=== PATIENT | male | born 1960 | race Hispanic/Latino ===

== ENCOUNTER 2018-11-30 05:24 | Inpatient (IN) | payer SELFPAY ==
[2018-11-30] MEDS ORDERED: Morphine 4 MG/ML VIAL ONE (05:42)
[2018-11-30] MEDS ORDERED: Ondansetron PF 4 MG/2 ML Vial ONE ×2 (05:42→10:49)
[2018-11-30 06:03] LABS: Hemoglobin 16.4 g/dL (14.0-18.0); Mean Corpuscular HGB CONC 32.4 g/dL (32.0-36.0); Mean Corpuscular Hemoglobin 28.8 pg (27.0-31.0); Mean Corpuscular Volume 89.1 fL (78.0-98.0); Mean Platelet Volume 8.7 fL (7.4-10.4); Platelet Count 256 thou/uL (130-400); RBC Distribution Width 11.4 % (11.5-14.5); Red Blood Cell (RBC) Count 5.69 mill/uL (4.70-6.10); White Blood Cell (WBC) Count 17.4 thou/uL (4.8-10.8)
[2018-11-30 06:20] LABS: ALT (SGPT) 23 U/L (8-55); AST (SGOT) 12 U/L (5-34); Albumin 4.1 g/dL (3.5-5.0); Alkaline Phosphatase 75 U/L (40-150); Anion Gap 17 mmol/L (10-20); BUN (Urea Nitrogen) 26 mg/dL (8.4-25.7); Bilirubin, Total 2.4 mg/dL (0.2-1.2); Calc. Creatinine Clearance 0 mL/min (70-130); Calcium 9.5 mg/dL (7.8-10.44); Carbon Dioxide 22 mmol/L (22-29); Chloride 92 mmol/L (98-107); Estimated GFR-MDRD 44; Globulin 3.5 g/dL (2.4-3.5); Glucose 267 mg/dL (70-105); Lipase Less than 4 U/L (8-78); Potassium 3.4 mmol/L (3.5-5.1); Protein, Total 7.6 g/dL (6.0-8.3); Sodium 128 mmol/L (136-145)
[2018-11-30] MEDS ORDERED: MEROPENEM 1 GM/50 ML 1 GM in Premix Bag 1 BAG IVPB SCH (06:30)
[2018-11-30 06:43] LABS: Band 9 % (5-11); Lymphocytes 2 % (21-51); MDiff Complete? YES; Monocytes 2 % (0-10); Neutrophil 83 % (42-75); Platelet Morphology Comment Appears Adequate; RBC Morphology Normal; Reactive Lymphocytes 4 % (0-10)
[2018-11-30] MEDS ORDERED: HYDROmorphone 0.5 MG/0.5 ML SYRINGE ONE (06:53)
[2018-11-30] MEDS ORDERED: Ketorolac Tromethamine 30 MG/ML VIAL ONE ×2 (07:04→10:49)
--- NOTE | 2018-11-30 07:06 | CT ---
CT ABDOMEN AND PELVIS WITH CONTRAST: INDICATIONS: Abdominal pain. COMPARISON: None. FINDINGS: No significant pathology at the imaged lung bases. Diminished attenuation of the liver may relate to hepatic steatosis versus phase of enhancement. There are loops of dilated small bowel, fluid-filled , with prominent inflammation, located about the right lower abdomen, where there is focal hyperdensi ty of bowel lumen, indicating an impacted appendicolith at the appendiceal base. The fluid-filled joby wel structure demonstrates the appearance of an elongated, dilated appendix, with a maximum diameter of approximately 16 to 17 mm. There is suggestion of a developing perforation, as evidenced by an il l-defined extraluminal air collection with surrounding prominent inflammation and ascites and additio nal interspersed air density, interposed between loops of inflamed bowel. The spleen, pancreas, kidn eys, and adrenal glands are grossly unremarkable. No acute osseous pathology. IMPRESSION: Evidence of perforated appendicitis with associated bowel obstruction. Urgent surgical consultation is warranted. Telephone call placed to emergency room physician, Kar Gallardo D.O., at the time of this dictation (0611 hours), 11/30/2018. CODE CR POS: [facility]
[2018-11-30] MEDS ORDERED: Acetaminophen 1,000 MG in Premix Bag 1 BAG IVPB SCH (07:15)
[2018-11-30] MEDS ORDERED: Promethazine HCl 25 MG/ML VIAL IM PRN ×2 (07:43→12:02)
[2018-11-30] MEDS ORDERED: Dextrose 50% Abboject 50 ML SYRINGE SLOW IVP PRN (07:43)
[2018-11-30] MEDS ORDERED: Dextrose 5% in Water 1,000 ML IV PRN (07:43)
[2018-11-30] MEDS ORDERED: Ondansetron PF 4 MG/2 ML Vial IVP PRN (07:43)
[2018-11-30 07:48] LABS: Clarity Hazy (Clear)
[2018-11-30 07:49] LABS: Leukocyte Negative (Negative)
[2018-11-30 07:50] LABS: Nitrite Unable to Interpret (Negative)
[2018-11-30 07:51] LABS: Bilirubin Unable to Interpret (Negative); Glucose, Urine (Dipstick) 250 mg/dL (Negative); Protein, Urine (Dipstick) > or equal to 300 mg/dL (Neg-Trace); Urobilinogen 0.2 mg/dL (0.2-1.0)
[2018-11-30 07:52] LABS: Blood, Urine Small (Negative)
[2018-11-30] MEDS ORDERED: Morphine 4 MG/ML VIAL SLOW IVP PRN (07:54)
[2018-11-30] MEDS ORDERED: Potassium Chloride 40 MEQ in Premix Bag 1 BAG IVPB SCH (08:00)
[2018-11-30 08:11] LABS: RBC/HPF 0-3 HPF (0-3)
[2018-11-30 08:12] LABS: Bacteria/HPF 1+ HPF (None Seen); Squamous Epithelial 0-3 HPF (0-3); WBC/HPF 0-3 HPF (0-3)
[2018-11-30 08:13] LABS: Other Casts/LPF 0-3 FINELY GRAN LPF (0-3 Hyaline)
[2018-11-30] MEDS ORDERED: Bupivacaine/Epinephrine 0.25% 30 ML VIAL ONE (08:13)
[2018-11-30] MEDS ORDERED: Fentanyl 250 MCG/5 ML VIAL ONE (08:18)
[2018-11-30 08:21] LABS: Hemoglobin A1c 6.8 % (4.0-6.0)
--- NOTE | 2018-11-30 08:24 | RAD ---
SINGLE VIEW CHEST: HISTORY: Abdominal pain and vomiting for two days. COMPARISON: None. FINDINGS: Two views of the chest show normal sized cardiomediastinal silhouette. There is no evidence of consol idation, mass, or pleural effusion. The bones are unremarkable. IMPRESSION: No evidence of acute cardiopulmonary disease. POS: [facility]
[2018-11-30 08:36] LABS: Magnesium 1.7 mg/dL (1.6-2.6); Phosphorus 2.4 mg/dL (2.3-4.7)
[2018-11-30] MEDS ORDERED: Iopamidol 370 76% 100 ML VIAL ONE (09:38)
[2018-11-30] MEDS ORDERED: Glycopyrrolate 0.2 MG/ML 5 ML SYRINGE ONE (10:49)
[2018-11-30] MEDS ORDERED: Rocuronium Bromide 10 MG/ML (10ML VIAL) ONE (10:49)
[2018-11-30] MEDS ORDERED: PROPOFOL 200 MG/20 ML VIAL ONE (10:49)
[2018-11-30] MEDS ORDERED: Phenylephrine HCL 10 MG/ML VIAL ONE (10:49)
[2018-11-30] MEDS ORDERED: Lidocaine 1% PF 5 ML VIAL ONE (10:49)
[2018-11-30] MEDS ORDERED: Dexamethasone 20 MG/5 ML VIAL ONE (10:49)
[2018-11-30] MEDS ORDERED: SUGAMMADEX SODIUM 200 MG/2 ML VIAL ONE (11:03)
[2018-11-30] MEDS ORDERED: SUGAMMADEX SODIUM 500 MG/5 ML VIAL ONE (11:03)
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
--- NOTE | 2018-11-30 11:40 | OP ---
DATE OF PROCEDURE: 11/30/2018 PREOPERATIVE DIAGNOSES: Acute appendicitis with rupture and peritonitis. POSTOPERATIVE DIAGNOSES: 1. Acute appendicitis with rupture and peritonitis. 2. Multiple intraperitoneal abscesses. PROCEDURE PERFORMED: 1. Laparoscopic appendectomy. 2. Drainage of multiple peritoneal abscesses. ANESTHESIA: General endotracheal. ESTIMATED BLOOD LOSS: 20 mL. FLUIDS GIVEN: 2500 mL crystalloids. COUNTS: Sponge and instrument counts were verified as correct x2. COMPLICATIONS: None apparent at time of operation. INDICATIONS FOR OPERATION: This is a 58-year-old man presented with a 4-day history of abdominal pain. Clinical radiographic examination was consistent with acute appendicitis with rupture for which the patient was brought to the operating room for appendectomy. Findings are consistent with suppurative retrocecal perforated appendix with multiple peritoneal abscesses. DESCRIPTION OF PROCEDURE: Informed consent was obtained from the patient. He was brought to the operating room and placed in supine position. Following general anesthesia, the abdomen was sterilely prepped and draped in usual fashion after a Ortiz catheter was inserted and placed to bedside drain. Skin below the umbilicus was infiltrated 0.25% Marcaine with epinephrine. A small curvilinear infraumbilical incision was made using 11 scalpel. Umbilical stalk grasped with Catalina and elevated. Veress needle was inserted through incision and placed in the peritoneal cavity through which the abdomen was insufflated with 2 L of CO2 gas. Intra-abdominal pressure was noted at 4 mmHg. Following abdominal insufflation, Veress needle was removed and a 5 mm trocar was introduced using a Visiport under laparoscopy. Laparoscopy confirmed proper placement of the port, no injuries to underlying structures. Additional laparoscopy revealed extensive amount of purulent peritoneal fluid, multiple and interloop abscesses noted. There were extensive fibrinous exudates with small bowel adhesions obscuring the right lower quadrant. At this juncture, 5 mm suprapubic and 10 mm left lower quadrant ports were placed after the overlying skin were infiltrated 0.25% Marcaine with epinephrine. Appropriate incision was made. The patient was placed in the Trendelenburg position, rotated to his left. I introduced an Endo suction catheter, used this to evacuate excess purulent peritoneal fluid. Loculations were broken down as multiple loops of bowel were teased apart evacuating interloop purulent fluid collections. Using the Endo suction catheter, the omentum was bluntly taken down off the right lower quadrant. Small bowel was then run from the ileocecal junction to proximal 2 feet finding no Meckel diverticulum. Suppurative retrocecal appendix with rupture was encountered. I introduced an Endo-Wentworth forceps through the suprapubic port site grasping the appendix, which was elevated. I used LigaSure device to serially divide the mesoappendix. The appendix itself was divided at the appendico-cecal junction between endo-loops. The suppurative appendix delivered of the abdominal cavity using an EndoCatch. The abdominal cavity was copiously irrigated with saline until it was clear. A #19 En drain was introduced into the pelvis with the tip abutting the operative site. The drain was allowed to exit the abdominal cavity through the suprapubic port site. The drain was secured to anterior abdominal wall using 2-0 silk suture. Finding no other pathology laparoscopy was terminated. Fascia of the left lower quadrant port was closed using 0 Vicryl suture and Endoclosure device on the laparoscopy. Abdomen had been desufflated. All ports and instruments were removed and accounted for. Skin incisions were closed using 4-0 Monocryl suture in subcuticular fashion. Dermabond was applied over incisional closure. The patient tolerated the operation without any apparent complication and was returned to recovery room in satisfactory condition. Job ID: [id number]
[2018-11-30] MEDS ORDERED: Ondansetron HCl/PF 4 MG/2 ML Vial IVP PRN (12:02)
[2018-11-30] MEDS ORDERED: Promethazine HCl 25 MG/ML VIAL SLOW IVP PRN (12:02)
[2018-11-30 12:42] LABS: Lactic Acid 2.2 mmol/L (0.5-2.2)
[2018-11-30 14:52] VITALS: BMI 29.2
[2018-11-30] MEDS: Famotidine/PF 20 mg/2ml Vial SLOW IVP SCH (15:26)
[2018-11-30] MEDS: Sodium Chloride 0.9% 1,000 ML IV SCH ×3 (16:02→23:50)
[2018-11-30] MEDS: Acetaminophen 1,000 MG in Premix Bag 1 BAG IVPB SCH ×3 (16:03→23:51)
[2018-11-30] MEDS: Piperacillin/Tazobactam 3.375 GM in Sodium Chloride 0.9% 100 ML IVPB SCH ×3 (16:03→23:51)
[2018-11-30] MEDS: HumaLOG 300 UNITS/3 ML VIAL SC PRN ×2 (16:44→20:50)
[2018-11-30 16:49] LABS: Hemoglobin 13.4 g/dL (14.0-18.0); Mean Corpuscular HGB CONC 34.4 g/dL (32.0-36.0); Mean Corpuscular Hemoglobin 31.5 pg (27.0-31.0); Mean Corpuscular Volume 91.4 fL (78.0-98.0); Mean Platelet Volume 9.1 fL (7.4-10.4); Platelet Count 154 thou/uL (130-400); RBC Distribution Width 11.4 % (11.5-14.5); Red Blood Cell (RBC) Count 4.25 mill/uL (4.70-6.10); White Blood Cell (WBC) Count 10.8 thou/uL (4.8-10.8)
[2018-11-30 17:11] LABS: Band 40 % (5-11); Lymphocytes 8 % (21-51); MDiff Complete? YES; Metamyelocyte 7 % (0-0); Monocytes 2 % (0-10); Neutrophil 43 % (42-75); Platelet Morphology Comment Appears Adequate; Polychromasia SLIGHT = 2-3 cells (100X) (0-2/hpf)
[2018-11-30] MEDS: Potassium Chloride 20 MEQ in Premix Bag 1 BAG IVPB SCH ×2 (17:20→17:21)
[2018-11-30 17:31] LABS: Anion Gap 12 mmol/L (10-20); BUN (Urea Nitrogen) 27 mg/dL (8.4-25.7); Calc. Creatinine Clearance 84 mL/min (70-130); Calcium 7.9 mg/dL (7.8-10.44); Carbon Dioxide 23 mmol/L (22-29); Chloride 100 mmol/L (98-107); Estimated GFR-MDRD 57; Glucose 339 mg/dL (70-105); Potassium 4.2 mmol/L (3.5-5.1); Sodium 131 mmol/L (136-145)
[2018-11-30] MEDS: Insulin Glargine 8 UNITS in Pre-Filled Syringe 1 EACH SC SCH (21:23)
[2018-12-01] MEDS: Insulin Regular 300 UNITS/3 ML VIAL SC PRN ×5 (00:22→16:12)
[2018-12-01 05:22] LABS: Band 27 % (5-11); Hemoglobin 12.6 g/dL (14.0-18.0); Lymphocytes 7 % (21-51); MDiff Complete? YES; Mean Corpuscular HGB CONC 34.7 g/dL (32.0-36.0); Mean Corpuscular Hemoglobin 31.8 pg (27.0-31.0); Mean Corpuscular Volume 91.5 fL (78.0-98.0); Mean Platelet Volume 9.3 fL (7.4-10.4); Monocytes 5 % (0-10); Neutrophil 61 % (42-75); Nucleated RBC 1 % (0); Platelet Count 156 thou/uL (130-400); Platelet Morphology Comment Appears Adequate; RBC Distribution Width 11.3 % (11.5-14.5); Red Blood Cell (RBC) Count 3.97 mill/uL (4.70-6.10); White Blood Cell (WBC) Count 10.5 thou/uL (4.8-10.8)
[2018-12-01] MEDS: Acetaminophen 1,000 MG in Premix Bag 1 BAG IVPB SCH ×3 (05:22→17:24)
[2018-12-01] MEDS: Piperacillin/Tazobactam 3.375 GM in Sodium Chloride 0.9% 100 ML IVPB SCH ×3 (05:23→17:23)
[2018-12-01 05:29] LABS: Anion Gap 12 mmol/L (10-20); BUN (Urea Nitrogen) 22 mg/dL (8.4-25.7); Calc. Creatinine Clearance 108 mL/min (70-130); Calcium 7.9 mg/dL (7.8-10.44); Carbon Dioxide 24 mmol/L (22-29); Chloride 102 mmol/L (98-107); Estimated GFR-MDRD 75; Glucose 197 mg/dL (70-105); Potassium 3.7 mmol/L (3.5-5.1); Sodium 134 mmol/L (136-145)
[2018-12-01] MEDS ORDERED: traMADol HCl 50 MG TAB PO PRN (07:39)
[2018-12-01] MEDS: Famotidine/PF 20 mg/2ml Vial SLOW IVP SCH (07:55)
[2018-12-01] MEDS ORDERED: Ibuprofen 800 MG TAB PO SCH (08:00)
[2018-12-01] MEDS ORDERED: Amoxicillin/Potassium Clav 875 MG TAB PO SCH (09:00)
[2018-12-01] MEDS: traMADol HCl 50 MG TAB PO PRN (09:41)
[2018-12-01] MEDS: Polyethylene Glycol 3350 17 GM Packet PO SCH (09:42)
[2018-12-01] MEDS: Senokot S 8.6-50 MG TAB PO SCH ×2 (09:42→20:19)
[2018-12-01] MEDS: Ketorolac Tromethamine 30 MG/ML VIAL IVP SCH ×2 (11:53→17:23)
[2018-12-01] MEDS ORDERED: Potassium Chloride 20 MEQ/100 ML PREMIX BAG IVPB SCH (12:45)
[2018-12-01 16:06] LABS: CO2 Tension (PvCO2) 37.1 mmHg (40.0-50.0)
[2018-12-01 16:07] LABS: Base Excess-Venous -2.6 mmol/L (-2.0 to 3.0); Bicarbonate (HCO3v) 22.1 mmol/L (22.0-28.0); Calcium, Ionized 1.01 mmol/L (See Comments:); Chloride 98 mmol/L (98-107); Hemoglobin - Calc 13.5 g/dL (14.0-18.0); Potassium 3.3 mmol/L (3.5-5.1); Sodium 134 mmol/L (138-145); T. Carbon Dioxide 23.2 mmol/L (22.0-28.0); vO2 Saturation-calc 93.5 % (60.0-85.0)
[2018-12-01] MEDS ORDERED: Potassium Chloride 20 MEQ TAB PO SCH (16:45)
[2018-12-01] MEDS: Insulin Glargine 8 UNITS in Pre-Filled Syringe 1 EACH SC SCH (20:20)
--- NOTE | 2018-12-02 08:26 | PRG ---
DATE OF SERVICE: 12/01/2018 Of note this is a late dictation. The patient was seen and evaluated earlier today, computer systems are currently down and unable to give specifics on vital signs or laboratory findings at that time. SUBJECTIVE: Mr. Kemp is a 58-year-old male, postop day 1, status post laparoscopic appendectomy secondary to perforated appendicitis with adynamic ileus. There were no acute overnight events. This morning, the patient reports that he feels bloated. Pain has been relatively well controlled. He reports some abdominal discomfort. OBJECTIVE: VITAL SIGNS: Reviewed as documented in electronic medical record. GENERAL: Well-developed male, in no acute distress, resting in bed. PULMONARY: Normal work of breathing. Symmetric rise. CARDIOVASCULAR: Regular rate and rhythm. GI: Abdomen is rotund and tympanic to percussion. Bowel sounds are hypoactive. Abdomen remains soft and without signs of peritonitis. MUSCULOSKELETAL: Moves all extremities x4. NEURO: No focal deficit noted. LABORATORY FINDINGS: Reviewed and as documented in electronic medical record. ASSESSMENT: 1. Status post laparoscopic appendectomy postop day one. 2. Perforated appendicitis. 3. Adynamic ileus, present on admission. 4. Hypokalemia. PLAN: Continue clear liquid diet until bowel function has returned. The patient will need to have a bowel movement prior to discharge. Continue broad-spectrum antibiotics and follow microbiology. Per my discussion with Dr. Richter, IV antibiotics are anticipated for at least 3 days and then transition to p.o. encourage incentive spirometry and mobility. Replete abnormal electrolytes. A.m. labs. Walking program. Plan of care was discussed with the patient at bedside. The patient was seen and evaluated with Dr. Richter. Job ID: [id number]
[2018-12-02] MEDS: Famotidine/PF 20 mg/2ml Vial SLOW IVP SCH (09:05)
[2018-12-02] MEDS: Polyethylene Glycol 3350 17 GM Packet PO SCH (09:05)
[2018-12-02] MEDS: Senokot S 8.6-50 MG TAB PO SCH ×2 (09:05→20:21)
[2018-12-02 09:54] LABS: Chloride 104 mmol/L (98-107); Potassium 3.5 mmol/L (3.5-5.1); Sodium 136 mmol/L (136-145)
[2018-12-02 09:55] LABS: Calcium 8.1 mg/dL (7.8-10.44); Glucose 87 mg/dL (70-105)
[2018-12-02 09:57] LABS: Anion Gap 13 mmol/L (10-20); Carbon Dioxide 23 mmol/L (22-29)
[2018-12-02 09:59] LABS: Calc. Creatinine Clearance 139 mL/min (70-130); Estimated GFR-MDRD Greater than 90
[2018-12-02 10:00] LABS: BUN (Urea Nitrogen) 19 mg/dL (8.4-25.7)
[2018-12-02] MEDS: Acetaminophen 1,000 MG in Premix Bag 1 BAG IVPB SCH (10:01)
[2018-12-02] MEDS: Ketorolac Tromethamine 30 MG/ML VIAL IVP SCH ×2 (10:02→11:35)
[2018-12-02] MEDS: Piperacillin/Tazobactam 3.375 GM in Sodium Chloride 0.9% 100 ML IVPB SCH ×3 (10:02→11:36)
[2018-12-02 10:16] LABS: #Eosinphils 0.1 thou/uL (0.0-0.7); #Lymphocytes 1.1 thou/uL (1.20-3.40); #Monocytes 0.4 thou/uL (0.11-0.59); #Neutrophils 8.7 thou/uL (1.40-6.50); %Basophils 0.4 % (0.0-1.0); %Monocytes 3.8 % (0.0-10.0); %Neutrophils 83.7 % (42.0-75.0); Hemoglobin 12.1 g/dL (14.0-18.0); Mean Corpuscular HGB CONC 34.3 g/dL (32.0-36.0); Mean Corpuscular Hemoglobin 31.7 pg (27.0-31.0); Mean Corpuscular Volume 92.3 fL (78.0-98.0); Mean Platelet Volume 9.2 fL (7.4-10.4); Platelet Count 186 thou/uL (130-400); RBC Distribution Width 11.3 % (11.5-14.5); Red Blood Cell (RBC) Count 3.82 mill/uL (4.70-6.10); White Blood Cell (WBC) Count 10.3 thou/uL (4.8-10.8)
[2018-12-02] MEDS: hydrALAZINE 20 MG/ML VIAL SLOW IVP PRN ×3 (11:36→20:21)
[2018-12-02] MEDS ORDERED: Potassium Chloride 20 MEQ TAB PO SCH (13:00)
[2018-12-02] MEDS: Acetaminophen 500 MG TAB PO SCH ×2 (13:30→16:41)
[2018-12-02] MEDS: Ibuprofen 600 MG TAB PO SCH ×2 (13:39→22:16)
[2018-12-02 14:40] LABS: Magnesium 2.1 mg/dL (1.6-2.6)
[2018-12-02 14:41] LABS: Phosphorus 1.9 mg/dL (2.3-4.7)
[2018-12-02] MEDS ORDERED: Sodium Phosphate 30 MMOL in Sodium Chloride 0.9% 250 ML 250 ML IVPB SCH (15:15)
--- NOTE | 2018-12-02 17:06 | PRG ---
DATE OF SERVICE: 12/02/2018 SUBJECTIVE: The patient was seen this morning lying in bed. Reports no acute events overnight. Pain is well controlled. He did report later this morning to Dr. Richter that he was passing flatus. He had previously been tolerating a clear liquid diet. The patient does not see a doctor regularly and is unsure if he has hypertension at baseline. However, he is willing to take medications as needed for high blood pressure. The patient also appears to be a diabetic as well. He is not on any home medications for that. He denies nausea, vomiting, diarrhea, fever, or chills. OBJECTIVE: VITAL SIGNS: Temperature 98.5, pulse 86, respirations 20, oxygen saturation 95% on room air, and blood pressure 157/91. GENERAL: Well-appearing, middle-aged male, lying in bed with no signs of acute distress. PULMONARY: Equal chest rise and fall. Clear breath sounds bilaterally. No signs of acute respiratory distress. CARDIAC: Regular rate and rhythm. No murmurs, gallops, or rubs. GI: Abdomen is soft, mildly distended, and mildly tender to palpation. Positive active bowel sounds. Surgical sites are clean, dry, and intact. EXTREMITIES: 2+ pulses in all extremities. No significant swelling noted. Gross motor and sensation are intact. NEUROLOGIC: GCS is 15. Pupils equal, round, and reactive to light bilaterally. Gross motor and sensation are intact. LABORATORY FINDINGS: White count 10.3, hemoglobin 12.1, hematocrit 35.2, and platelets 186. Sodium 136, potassium 3.5, chloride 104, carbon dioxide 23, BUN 19, creatinine 0.79, and glucose 86. Phosphorus 1.9. Magnesium 2.1. DIAGNOSTIC FINDINGS: There are no new diagnostic findings to report. ASSESSMENT: 1. Perforated appendicitis and abscess, postoperative day 2 status post laparoscopic appendectomy and drainage of multiple peritoneal abscesses. 2. Hypophosphatemia. 3. Hypokalemia. PLAN: The patient to advance to full liquid diet from clear liquid diet. We will replace potassium and phosphorus today. tennis ball cover cementer from Zosyn to Augmentin p.o. We will start hydralazine p.r.n. for hypertension and monitor to see if needed. We will start antihypertensive medications tomorrow if necessary. The patient does not see a physician regularly and I suspect that he has uncontrolled essential hypertension and diabetes that we will further address tomorrow. We also continue to encourage the patient to continue ambulating. The patient was seen and examined by Dr. Richter and myself at separate times this morning. Critical Care time: 30 minutes Job ID: [id number] [facility]
[2018-12-02] MEDS: Insulin Regular 300 UNITS/3 ML VIAL SC PRN (20:22)
[2018-12-02] MEDS: Famotidine 20 MG TAB PO SCH (20:22)
[2018-12-02] MEDS: Insulin Glargine 8 UNITS in Pre-Filled Syringe 1 EACH SC SCH (20:22)
[2018-12-02] MEDS: Enoxaparin Sodium 40 MG/0.4 ML SYRINGE SC SCH (20:23)
[2018-12-02] MEDS ORDERED: Amoxicillin/Potassium Clav 875 MG TAB PO SCH (21:00)
[2018-12-03] MEDS: Acetaminophen 500 MG TAB PO SCH ×4 (01:17→18:02)
[2018-12-03] MEDS: hydrALAZINE 20 MG/ML VIAL SLOW IVP PRN (04:12)
[2018-12-03 05:30] LABS: Anion Gap 13 mmol/L (10-20); BUN (Urea Nitrogen) 11 mg/dL (8.4-25.7); Calc. Creatinine Clearance 148 mL/min (70-130); Calcium 8.3 mg/dL (7.8-10.44); Carbon Dioxide 23 mmol/L (22-29); Chloride 100 mmol/L (98-107); Estimated GFR-MDRD Greater than 90; Glucose 136 mg/dL (70-105); Magnesium 1.7 mg/dL (1.6-2.6); Phosphorus 2.7 mg/dL (2.3-4.7); Potassium 3.2 mmol/L (3.5-5.1); Sodium 133 mmol/L (136-145)
[2018-12-03] MEDS ORDERED: Magnesium Sulfate 2 GM in Sodium Chloride 0.9% 100 ML IVPB SCH (07:15)
[2018-12-03] MEDS ORDERED: Potassium Phosphate 30 MMOL, Magnesium Sulfate 2 GM in Sodium Chloride 0.9% 500 ML IVPB SCH (07:15)
[2018-12-03] MEDS: Ibuprofen 600 MG TAB PO SCH ×3 (07:23→22:02)
[2018-12-03 07:31] LABS: Mean Corpuscular HGB CONC 33.9 g/dL (32.0-36.0); Mean Corpuscular Hemoglobin 30.8 pg (27.0-31.0); Mean Corpuscular Volume 90.8 fL (78.0-98.0); Mean Platelet Volume 8.4 fL (7.4-10.4); Platelet Count 236 thou/uL (130-400); RBC Distribution Width 11.4 % (11.5-14.5); Red Blood Cell (RBC) Count 4.23 mill/uL (4.70-6.10); White Blood Cell (WBC) Count 17.2 thou/uL (4.8-10.8)
[2018-12-03 07:53] LABS: Band 13 % (5-11); Eosinophils 3 % (0-10); Lymphocytes 10 % (21-51); MDiff Complete? YES; Monocytes 2 % (0-10); Neutrophil 72 % (42-75); Platelet Morphology Comment Appears Adequate; RBC Morphology Normal; Vacuoles SLIGHT
[2018-12-03] MEDS: traMADol HCl 50 MG TAB PO PRN ×2 (08:17→15:38)
[2018-12-03] MEDS: Senokot S 8.6-50 MG TAB PO SCH ×2 (08:52→20:17)
[2018-12-03] MEDS: Famotidine 20 MG TAB PO SCH ×2 (08:53→20:17)
[2018-12-03] MEDS: Polyethylene Glycol 3350 17 GM Packet PO SCH (08:53)
[2018-12-03] MEDS ORDERED: Lisinopril 20 MG TAB PO SCH (09:00)
[2018-12-03] MEDS: Lisinopril 20 MG TAB PO SCH ×2 (10:27→11:37)
[2018-12-03] MEDS: traMADol HCl 50 MG TAB PO SCH ×2 (12:02→18:26)
[2018-12-03] MEDS: Insulin Regular 300 UNITS/3 ML VIAL SC PRN (12:04)
[2018-12-03] MEDS ORDERED: metroNIDAZOLE 500 MG in Premix Bag 1 BAG IVPB SCH (14:00)
--- NOTE | 2018-12-03 14:49 | PRG ---
DATE OF SERVICE: 12/03/2018 SUBJECTIVE: Jaycob Kemp is a 58-year-old male, postop day 3, status post laparoscopic appendectomy. The patient was advanced to a full-liquid diet yesterday. There were no acute overnight events. However, he did have a low- grade fever, hypertension requiring intermittent use of p.r.n. hydralazine. This morning, he had a chief complaint of diarrhea, but states that his abdomen feels less bloated. OBJECTIVE: VITAL SIGNS: T-max 99.7, pulse 103, respirations 14, O2 saturation 94% on room air, blood pressure 159/94. GENERAL: Sitting on edge of bed, in no acute distress. HEAD: Normocephalic, atraumatic. NECK: Supple. Trachea is midline. PULMONARY: Normal work of breathing. Symmetric rise. CARDIOVASCULAR: Minimally tachycardic. GASTROINTESTINAL: Abdomen is rotund, but softer than previous. Surgical sites are clean, dry, and intact. MUSCULOSKELETAL: Moves all extremities x4. NEUROLOGICAL: No focal deficit is noted. LABORATORY FINDINGS: WBC 17.2, hemoglobin 13.0, hematocrit 38.4, platelet count 236, 13% bands. Sodium 133, potassium 3.2, chloride 100, carbon dioxide 23, BUN 11, creatinine 0.74, glucose 136, phosphorus 2.7, magnesium 1.7. ASSESSMENT: 1. Perforated appendicitis with intraabdominal abscess, postoperative day 3, status post laparoscopic appendectomy and drainage of abscess. 2. Electrolyte abnormality. 3. History of diabetes. 4. Hypertension. 5. Leukocytosis with tachycardia. PLAN: The patient was switched to Augmentin yesterday, which may be contributing to his diarrhea. We will switch to Cipro and Flagyl. Continue to follow microbiology. Pain management as ordered. Continue to encourage mobility. Advance diet to consistent carbohydrate. Add lisinopril. Recommend the patient follow up post hospitalization with a primary care provider for his diabetes and high blood pressure. Plan of care was discussed with the patient at bedside and all questions were answered at the time of this dictation. The patient was seen and evaluated by Dr. Richter. 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 Job ID: [id number] [facility]
[2018-12-03] MEDS: metroNIDAZOLE 500 MG TAB PO SCH (20:16)
[2018-12-03] MEDS: Cipro 250 MG TAB PO SCH (20:16)
[2018-12-03] MEDS: Enoxaparin Sodium 40 MG/0.4 ML SYRINGE SC SCH (20:16)
[2018-12-03] MEDS: Insulin Glargine 8 UNITS in Pre-Filled Syringe 1 EACH SC SCH (20:17)
[2018-12-04] MEDS: Acetaminophen 500 MG TAB PO SCH ×5 (01:00→23:20)
[2018-12-04] MEDS: traMADol HCl 50 MG TAB PO SCH ×4 (01:06→17:05)
[2018-12-04] MEDS: hydrALAZINE 20 MG/ML VIAL SLOW IVP PRN (04:27)
[2018-12-04] MEDS: Cipro 250 MG TAB PO SCH ×2 (06:33→21:15)
[2018-12-04] MEDS: Ibuprofen 600 MG TAB PO SCH ×3 (06:34→21:17)
[2018-12-04 07:06] LABS: Anion Gap 14 mmol/L (10-20); BUN (Urea Nitrogen) 9 mg/dL (8.4-25.7); Calc. Creatinine Clearance 155 mL/min (70-130); Calcium 8.3 mg/dL (7.8-10.44); Carbon Dioxide 22 mmol/L (22-29); Chloride 100 mmol/L (98-107); Estimated GFR-MDRD Greater than 90; Glucose 125 mg/dL (70-105); Magnesium 1.8 mg/dL (1.6-2.6); Potassium 3.3 mmol/L (3.5-5.1); Sodium 133 mmol/L (136-145)
[2018-12-04 07:42] LABS: Band 13 % (5-11); Hemoglobin 13.1 g/dL (14.0-18.0); Lymphocytes 11 % (21-51); MDiff Complete? YES; Mean Corpuscular HGB CONC 33.7 g/dL (32.0-36.0); Mean Corpuscular Hemoglobin 30.8 pg (27.0-31.0); Mean Corpuscular Volume 91.4 fL (78.0-98.0); Mean Platelet Volume 8.3 fL (7.4-10.4); Monocytes 4 % (0-10); Neutrophil 72 % (42-75); Platelet Count 258 thou/uL (130-400); RBC Distribution Width 11.4 % (11.5-14.5); Red Blood Cell (RBC) Count 4.24 mill/uL (4.70-6.10); White Blood Cell (WBC) Count 17.1 thou/uL (4.8-10.8)
[2018-12-04] MEDS: metroNIDAZOLE 500 MG TAB PO SCH ×3 (08:26→21:16)
[2018-12-04] MEDS: Polyethylene Glycol 3350 17 GM Packet PO SCH (08:26)
[2018-12-04] MEDS: Famotidine 20 MG TAB PO SCH (08:26)
[2018-12-04] MEDS: Senokot S 8.6-50 MG TAB PO SCH ×2 (08:27→21:16)
[2018-12-04] MEDS ORDERED: Lisinopril 20 MG TAB PO SCH (09:00)
[2018-12-04] MEDS ORDERED: Potassium Phosphate 30 MMOL in Sodium Chloride 0.9% 500 ML IVPB SCH (09:00)
--- NOTE | 2018-12-04 11:04 | EKG ---
Test Reason : PREOP Blood Pressure : / mmHG Vent. Rate : 107 BPM Atrial Rate : 107 BPM P-R Int : 168 ms QRS Dur : 112 ms QT Int : 376 ms P-R-T Axes : 029 133 029 degrees QTc Int : 501 ms Sinus tachycardia Possible Left atrial enlargement Right bundle branch block Septal infarct , age undetermined Abnormal ECG Confirmed by DELON MOON ([id number]), state editor ARIANA CORREIA ([id number]) on 12/04/2018 11:03:26 AM Referred By: Confirmed By:DELON MOON
--- NOTE | 2018-12-04 12:58 | PRG ---
DATE OF SERVICE: 12/04/2018 SUBJECTIVE: Mr. Kemp is a 58-year-old man, who is postoperative day #4, status post laparoscopic appendectomy for missed acute appendicitis with rupture and multiple intraabdominal abscesses. The patient is awake and alert, reports better pain control on tramadol. He is unwilling to take ibuprofen or Tylenol as he thinks those agents upsets the stomach. He is tolerating clear liquid diet. He is passing minimum flatus and having loose bowel movements. PHYSICAL EXAMINATION: VITAL SIGNS: This morning include blood pressure 174/95, pulse 80, respiratory rate is 20, temperature is 98.4 degrees Fahrenheit with maximum temperature in last 24 hours noted at 99.5 degrees Fahrenheit, and oxygen saturation is 97% on room air. HEENT: Reveals normocephalic and atraumatic. Pupils are equal, round, and reactive to light and accommodation. HEART: Reveals regular rate and rhythm. No murmurs or gallops auscultated. LUNGS: Clear to auscultation bilaterally. Breathing, regular and nonlabored. ABDOMEN: Soft and moderately distended. Incisions intact, clean and dry. Kristofer-Paredes drain returns moderate amount of serous fluid. LABORATORY FINDINGS: Today include a CBC with 17,100 white blood cells, hemoglobin and hematocrit 13.1 and 38.8 respectively. Platelet count is 258,000 and stable. Differential count as follows; 72% segmented neutrophils, 13 bands, 11 lymphocytes, and 4 monocytes. Metabolic profile; sodium 133, potassium is 3.3, chloride is 100, bicarb is 22, BUN is 9, creatinine is 0.71, glucose is 125, magnesium 1.8, and phosphorus is 3.0. IMPRESSIONS: 1. Postoperative day #4, status post laparoscopic appendectomy. 2. Multiple intraabdominal abscesses secondary to ruptured appendicitis, stable. 3. Acute hypokalemia. 4. Acute hypomagnesemia. PLAN: 1. Correct abnormal electrolytes. 2. Continue with current antibiotic therapy until sensitivity studies have been obtained. 3. Advance diet as tolerated. Above findings and plan discussed with the patient, who indicates understanding of information given. I have answered his questions. Job ID: [id number]
[2018-12-04] MEDS: Furosemide 20 MG/2 ML VIAL SLOW IVP SCH (13:35)
[2018-12-04] MEDS: Insulin Regular 300 UNITS/3 ML VIAL SC PRN (18:08)
[2018-12-04] MEDS: Enoxaparin Sodium 40 MG/0.4 ML SYRINGE SC SCH (21:15)
[2018-12-04] MEDS: Insulin Glargine 8 UNITS in Pre-Filled Syringe 1 EACH SC SCH (21:15)
[2018-12-04] MEDS: traMADol HCl 50 MG TAB PO PRN (21:17)
[2018-12-05] MEDS: traMADol HCl 50 MG TAB PO SCH ×3 (00:29→12:22)
[2018-12-05] MEDS: Furosemide 20 MG/2 ML VIAL SLOW IVP SCH (03:23)
[2018-12-05 05:06] LABS: #Eosinphils 0.2 thou/uL (0.0-0.7); #Lymphocytes 1.9 thou/uL (1.20-3.40); #Monocytes 1.4 thou/uL (0.11-0.59); #Neutrophils 12.8 thou/uL (1.40-6.50); %Lymphocytes 11.8 % (21.0-51.0); %Monocytes 8.7 % (0.0-10.0); %Neutrophils 78.5 % (42.0-75.0); Mean Corpuscular HGB CONC 34.5 g/dL (32.0-36.0); Mean Corpuscular Hemoglobin 31.7 pg (27.0-31.0); Mean Platelet Volume 8.3 fL (7.4-10.4); Platelet Count 305 thou/uL (130-400); RBC Distribution Width 11.4 % (11.5-14.5); White Blood Cell (WBC) Count 16.3 thou/uL (4.8-10.8)
[2018-12-05] MEDS: Ibuprofen 600 MG TAB PO SCH ×2 (06:06→14:53)
[2018-12-05] MEDS: Acetaminophen 500 MG TAB PO SCH ×2 (06:06→12:07)
[2018-12-05] MEDS: Cipro 250 MG TAB PO SCH (06:53)
[2018-12-05 07:43] LABS: Calcium 8.8 mg/dL (7.8-10.44); Chloride 97 mmol/L (98-107); Potassium 3.4 mmol/L (3.5-5.1); Sodium 135 mmol/L (136-145)
[2018-12-05 07:44] LABS: Glucose 137 mg/dL (70-105)
[2018-12-05 07:45] LABS: Anion Gap 14 mmol/L (10-20); Carbon Dioxide 27 mmol/L (22-29)
[2018-12-05 07:47] LABS: Calc. Creatinine Clearance 129 mL/min (70-130); Estimated GFR-MDRD Greater than 90
[2018-12-05 07:48] LABS: BUN (Urea Nitrogen) 11 mg/dL (8.4-25.7)
[2018-12-05] MEDS ORDERED: Potassium Phosphate 30 MMOL in Sodium Chloride 0.9% 500 ML IVPB SCH (09:00)
[2018-12-05] MEDS ORDERED: Lisinopril 20 MG TAB PO SCH (09:00)
[2018-12-05] MEDS: metroNIDAZOLE 500 MG TAB PO SCH ×2 (09:24→15:56)
[2018-12-05] MEDS: Polyethylene Glycol 3350 17 GM Packet PO SCH (09:26)
[2018-12-05] MEDS: Senokot S 8.6-50 MG TAB PO SCH (09:26)
[2018-12-05 12:17] VITALS: BP 121/87
[2018-12-05] MEDS: Insulin Regular 300 UNITS/3 ML VIAL SC PRN (15:57)
[2018-12-05 16:15] VITALS: TEMP 98
[2018-12-05] MEDS ORDERED: metFORMIN XR 500 MG TAB PO SCH (21:00)
[2018-12-06] MEDS ORDERED: Saccharomyces boulardii 250 MG CAP PO SCH (09:00)
--- NOTE | 2018-12-07 04:31 | DIS ---
DATE OF ADMISSION: 11/30/2018 DATE OF DISCHARGE: 12/05/2018 ATTENDING PHYSICIAN: Dr. Richter. DISCHARGING PHYSICIAN: Dr. Richter. PROCEDURES: 1. On 11/30/2018, abdominal/pelvis CT, impression; evidence of perforated appendicitis with associated bowel obstruction. 2. Chest x-ray; no evidence of acute cardiopulmonary disease. 3. On 11/30/2018, laparoscopic appendectomy and drainage of multiple peritoneal abscesses by Dr. Richter. PRIMARY DIAGNOSES: Perforated appendicitis, status post laparoscopic appendectomy with drainage of multiple abscesses, adynamic ileus on admission. SECONDARY DIAGNOSES: New onset hypertension and new onset type 2 diabetes. DISCHARGE MEDICATIONS: 1. Acetaminophen 1000 mg q.6 hours. 2. Cipro 250 mg b.i.d. for 12 days total. 3. Ibuprofen 600 mg q.8 hours. 4. Zestril 20 mg p.o. daily. 5. Metformin 500 mg XR p.o. b.i.d. with meals. 6. Flagyl 500 mg p.o. three times a day for 12 days total. 7. Florastor 250 mg p.o. daily for 30 days. 8. Tramadol 50 mg p.o. q.6 hours as needed for pain. HISTORY OF PRESENT ILLNESS AND HOSPITAL COURSE: This is a 58-year-old male, who presented to the emergency room with a 3-day history of abdominal pain, acutely worse the night before, associated with nausea, vomiting, and fever. The patient was found to be tachycardic and signs of rigid abdomen. The patient had leukocytosis with a left shift, acute kidney injury, and lactic acidosis. Septic workup was completed. Abdominal CT showed signs consistent with ruptured appendicitis. The patient was taken emergently to the operating room. The patient was given IV fluids and empiric antibiotics. The patient also reported polyuria. The patient was found to have a new onset of diabetes and hypertension. The patient was started on treatment for both during his hospital course. The patient was able to participate with physical therapy. The patient was eventually placed on p.o. antibiotics. On the day of discharge, the patient was examined by Dr. Richter. The patient's SAROJ drain was removed. The patient's exam was unremarkable including cardiopulmonary and GI exam. The patient was having bowel movements and passing gas. The patient was deemed stable for discharge home. Vital signs were stable. DISPOSITION: Stable. INSTRUCTIONS: 1. Location: Home. 2. Diet: Regular diet as tolerated. 3. Activity: As tolerated. No heavy lifting greater than 20 pounds. 4. Followup: Follow up with Dr. Richter in 2 weeks. Will need lab work prior to appointment. Job ID: [id number]
== END 2018-12-05 16:15 | disposition home or self-care (01) | DRG 338 ==
LOC: ERS 05:24 → SDC 11:29 → OBSVTOIN 14:04 → SURG A 14:04
PROVIDERS: ADMIT Surgery; ATTEND Surgery
PROC: 0DTJ4ZZ Resection of Appendix, Percutaneous Endoscopic Approach (ICD-10-PCS; principal; 2018-11-30)
PROC: 0W9G40Z Drainage of Peritoneal Cavity with Drainage Device, Percutaneous Endoscopic Approach (ICD-10-PCS; 2018-11-30)
DX: K35.33 Acute appendicitis with perforation, localized peritonitis, and gangrene, with abscess (principal); A41.9 Sepsis, unspecified organism; R65.20 Severe sepsis without septic shock; N17.9 Acute kidney failure, unspecified; K56.0 Paralytic ileus; E87.1 Hypo-osmolality and hyponatremia; Z98.890 Other specified postprocedural states; G20 Parkinson's disease; D72.829 Elevated white blood cell count, unspecified; R73.9 Hyperglycemia, unspecified; E87.6 Hypokalemia; E83.39 Other disorders of phosphorus metabolism
CPT/HCPCS: 36415; 36416; 71045; 74177; 80048; 80053; 81003; 81015; 82010; 82330; 82803; 83036; 83605; 83690; 83735; 84100; 85025; 87040; 87070; 87076; 87086; 87205; 88304; 93005; 96361; 96365; 96367; 96375; J0131; J0360; J0744; J1100; J1170; J1650; J1815; J1885; J1940; J2001; J2185; J2270; J2370; J2405; J2543; J2704; J3010; J3475; J3480; J3490; J7050; S0028